=== PATIENT | male | born 2000 | race Caucasian/White ===

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

== ENCOUNTER 2020-02-10 08:39 | Emergency (ER) | payer MEDICAID ==
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
[2020-02-10 09:54] VITALS: BP 111/64; PULSE 65
--- NOTE | 2020-02-12 11:09 | CR ---
Ankle Min 3V Rt CLINICAL HISTORY: Pain FINDINGS: The soft tissues are normal. No acute fracture or dislocation is noted. Ankle mortise is intact. Articular surfaces are smooth. Impression: Negative
== END 2020-02-10 10:38 | disposition home or self-care (01) ==
LOC: JP.ED 08:39
DX: M25.571 Pain in right ankle and joints of right foot (principal); F84.0 Autistic disorder
CPT/HCPCS: 73610-26-RT; 73610-RT; 99283-25

== ENCOUNTER 2021-09-18 22:22 | Emergency (ER) | payer MEDICAID ==
[2021-09-18 22:33] VITALS: BP 124/80; PULSE 84
[2021-09-18] MEDS ORDERED: diphenhydrAMINE 25 MG Cap PO ONE (22:43)
[2021-09-18] MEDS ORDERED: hydrOXYzine HCl 25 MG Tab PO ONE (22:43)
== END 2021-09-18 22:58 | disposition home or self-care (01) ==
LOC: JP.ED 22:22
DX: S80.861A Insect bite (nonvenomous), right lower leg, initial encounter (principal); Z79.899 Other long term (current) drug therapy; W57.XXXA Bitten or stung by nonvenomous insect and other nonvenomous arthropods, initial encounter
CPT/HCPCS: 99281; A9270

== ENCOUNTER 2021-09-25 18:29 | Emergency (ER) | payer MEDICAID ==
[2021-09-25 19:43] VITALS: BP 110/67; PULSE 63
== END 2021-09-25 21:01 | disposition home or self-care (01) ==
LOC: JP.ED 18:29
DX: S66.412A Strain of intrinsic muscle, fascia and tendon of left thumb at wrist and hand level, initial encounter (principal); X50.1XXA Overexertion from prolonged static or awkward postures, initial encounter
CPT/HCPCS: 73140-26-FA; 73140-FA; 99283

== ENCOUNTER 2021-12-10 19:58 | Emergency (ER) | payer OTHER, MEDICAID ==
[2021-12-10 20:44] VITALS: BP 126/86; PULSE 62
== END 2021-12-10 22:03 | disposition home or self-care (01) ==
LOC: JP.ED 19:58
DX: S86.911A Strain of unspecified muscle(s) and tendon(s) at lower leg level, right leg, initial encounter (principal); S46.912A Strain of unspecified muscle, fascia and tendon at shoulder and upper arm level, left arm, initial encounter; V48.9XXA Unspecified car occupant injured in noncollision transport accident in traffic accident, initial encounter; Y92.410 Unspecified street and highway as the place of occurrence of the external cause
CPT/HCPCS: 73030-26-LT; 73030-LT; 73562-26-LT; 73562-LT; 99283

== ENCOUNTER 2023-05-10 16:48 | Emergency (ER) | payer SELFPAY ==
[2023-05-10 21:49] VITALS: BP 120/78; PULSE 81
== END 2023-05-10 21:45 | disposition home or self-care (01) ==
LOC: JP.ED 16:48
DX: S86.911A Strain of unspecified muscle(s) and tendon(s) at lower leg level, right leg, initial encounter (principal); X50.1XXA Overexertion from prolonged static or awkward postures, initial encounter
CPT/HCPCS: 73562-26-RT; 73562-RT; 99283

== ENCOUNTER 2023-08-31 13:27 | Emergency (ER) | payer MEDICAID ==
[2023-08-31 13:35] VITALS: BP 124/78; PULSE 79
== END 2023-08-31 15:27 | disposition home or self-care (01) ==
LOC: JP.ED 13:27
DX: L02.11 Cutaneous abscess of neck (principal)
CPT/HCPCS: 99282